=== PATIENT | female | born 2000 | race Caucasian/White ===

== ENCOUNTER 2020-07-01 15:09 | Outpatient (CLI) | payer OTHER ==
--- NOTE | 2020-07-01 17:25 | CT ---
CT Abdomen Pelvis W Con: 07/01/2020 12:00 AM CLINICAL INFORMATION: Bloating, diarrhea and left lower quadrant abdominal mass COMPARISON: None. TECHNIQUE: Multiple contiguous axial images were obtained and a CT of the abdomen and pelvis with IV contrast. Oral contrast was administered. Coronal and sagittal reformats were performed. FINDINGS: Lower Chest: within normal limits. Abdomen: Liver: within normal limits. Bile Ducts: Normal caliber. Gallbladder: No calcified gallstones. Normal caliber wall. Pancreas: within normal limits. Spleen: within normal limits. Adrenals: within normal limits. Kidneys: within normal limits. Pelvis: Reproductive Organs: The uterus is enlarged. There is a 13.3 cm mass in the uterus which likely repre sents a large uterine fibroid. This is predominantly intramural. The ovaries are unremarkable. The patient appears to have recently ovulated from the right ovary. Ureters: within normal limits. Bladder: within normal limits. Peritoneum: No ascites or free air, no fluid collection. Bowel: Normal caliber. Mesentery and Retroperitoneum: No enlarged mesenteric or retroperitoneal lymph nodes. Vessels: Normal. Abdominal Wall: within normal limits. Bones: Within normal limits IMPRESSION: Large uterine mass likely represents a large fibroid.
== END 2020-07-01 15:10 | disposition home or self-care (01) ==
LOC: SCSCT 15:09
DX: R14.0 Abdominal distension (gaseous) (principal); N85.8 Other specified noninflammatory disorders of uterus
CPT/HCPCS: 74177